=== PATIENT | male | born 1975 | race Two or more races ===

== ENCOUNTER 2025-09-17 15:02 | Emergency (ER) | payer SELFPAY ==
[2025-09-17 15:48] VITALS: BP 180/92; PULSE 70; RESP 18; TEMP 36.4; O2SAT 96; BMI 33.2
--- NOTE | 2025-09-17 15:54 | XR_ITS ---
Examination: Knee, left, 3 views Technique: Knee AP, lateral, oblique 3 views Date and time of exam: September 17, 2025, 1617 hours INDICATIONS: Twisting injury to the knee 4 days ago, knee pain. FINDINGS: No fracture or dislocation Moderate knee effusion Mild to moderate narrowing medial joint space IMPRESSION: No fracture or dislocation
--- NOTE | 2025-09-17 17:02 | EDNOTE_ITS ---
ED General RME/HPI General Chief complaint: Extremity Injury, Lower Stated complaint: L) KNEE PAIN 08/04 Time Seen by Provider: 09/17/25 15:52 Arrival date/time: 09/17/25 15:02 CC: Left knee pain HPI ongoing for the past several days. Denies fever or chills but has noted also some swelling in the knee. 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 Patient denies fever chills shortness of breath difficulty breathing numbness or tingling in the lower extremity. Related Data Previous Rx's ?Medication ?Instructions ?Recorded meloxicam 7.5 mg tablet 7.5 mg PO QDAY #10 tabs 08/27 01/17 Allergies Allergy/AdvReac Type Severity Reaction Status Date / Time Penicillins Allergy Severe Swelling Verified 09/17/25 15:05 of Lip/Tongue/Throat Review of Systems Review of Systems Narrative Review of Systems: GEN: No fever, no chills, no weight loss EYES: No discharge, no visual changes, no pain HEENT: No ear pain, no congestion, no sore throat PULM: No shortness of breath, no cough, no congestion CV: No chest pain, no dyspnea on exertion, no palpitations GI: No nausea, no vomiting, no diarrhea, no pain, no constipation : No frequency, no urgency, no dysuria MUSC/SKEL: + joint pain, no back pain SKIN: No rash PSYCH: No hallucinations, no depression HEME/LYMPH: No easy bleeding or bruising tendencies NEURO: No weakness, no headache Past Medical History Social History SMOKING STATUS: Never smoker ED Exam Narrative Physical exam: [General: In mild discomfort but not in any acute distress Head normocephalic HEENT: Within acceptable limits Neck is supple nontender Chest equal chest rise nontender to palpation Respiratory: Clear to auscultation no wheezes crackles or rubs CV: Rate rhythm is regular no murmurs rubs or clicks Abdomen is distended secondary to body habitus soft nontender no masses positive bowel sounds all 4 quadrants Back: No CVA tenderness no spinous process tenderness from cervical spine thoracic and lumbar spine Skin: Intact no petechiae rash induration ulceration or crepitus Extremities: Left lower extremity: Subtle edema, no fluctuant, full range of motion with pain no pops or clicks. Negative lateral laxity negative anterior drawer no posterior fossa tenderness with palpation the majority of the tenderness is with palpation of the proximal tibia laterally and medially. No tenderness with palpation of the proximal or distal patellar ligament. No patellar pain with palpation. Moving all other extremities against resistance cap refill less than 2 seconds neurosensory intact Neuro: Awake alert oriented x3 Glascow coma 15 no focal deficits] Course Quality Measures none Orders Category Date Time Status XR knee LT 3V Stat Exams 09/17/25 15:54 Taken Vital Signs Vital signs: Vital Signs Temperature 97.6 F 09/17/25 15:48 Pulse Rate 70 09/17/25 15:48 Respiratory Rate 18 09/17/25 15:48 Blood Pressure 180/92 H 09/17/25 15:48 Pulse Oximetry (%) 96 09/17/25 15:48 Oxygen Delivery Method Room Air 09/17/25 15:48 Discharge Plan Plan Patient Disposition: HOME (Self Care) Patient condition on transfer: Stable Prescriptions/Referrals Prescriptions/Med Rec: New meloxicam 7.5 mg tablet 7.5 mg PO QDAY Qty: 10 0RF Referrals: Clayton Wharton MD [Primary Care Provider, Family Practice] - In 1 week Adi Kirkpatrick MD [Physician, Orthopedics] - In 1 week Problem List Clinical Impression: Knee pain Patient/Caregiver Discharge Instructions Other Activity Instructions:: I suspect overuse, and poor cushioning in your work boots please rest your knee for approximately 1 week take the medications as prescribed. Follow-up with a fire protection specialist listed above or whoever Workmen's Comp. assigned to you. Education Materials: ED Knee Pain of Uncertain Cause Print Language: Pakistani Stand Alone Forms: Magdalena Award Info., Patient Portal Info Letter, Work/School Release MDM Clinical Information Provided by: patient Medical Records reviewed [facility] Meds/Rx considered, not ordered None Labs/Rad/Tests considered, not ordered None Chronic Illness/Social Conditions which may negatively complicate care or outcome(s)-explain: None or not applicable EKG EKG not done Labs Labs: none Imaging Imaging interpretation: interpreted by me Imaging Interpretation(s): X-ray shows soft tissue edema, no fracture malalignment or dislocation appreciated no significant joint space reduction. This as interpreted by me. Medication Administration(s) none Diagnosis Differential Diagnosis ED Complaint MDM: Tibial plateau fracture patellar fracture distal femur fracture
== END 2025-09-17 17:31 | disposition home or self-care (01) ==
PROVIDERS: Emergency Provider Emergency Medicine; PCP Family Medicine
DX: M25.562 Pain in left knee (principal)
CPT/HCPCS: 73562; 99282